=== PATIENT | female | born 1930 | race Caucasian/White ===

== ENCOUNTER → 2018-05-02 | Outpatient (CLI) | payer MEDICARE ==
[~2018-05-02] MED LIST: ACET120S; ACET325 PO; AMLO5; ASPI325; ASPI325EC; ASPI81EC PO; ATEN25; ATOR10; AZIT250 PO; BENZ100A PO; CALCIUM + D SO1 EACH; CLON.5 PO; CODGUAEL PO; FERROUS GLUCONATE; HYDACE5 PO; HYDCHL12.5 PO; LEVSOD88 PO; LISI20; LOVA20 PO; Naprosyn375 MG PO; Norco 10-325 T1 EACH PO; OMEP20ER PO; PREG100 PO; RALO60; Zithromax250 MG PO; Zofran Odt4 MG SL
== END | disposition home or self-care (01) ==
LOC: PLD 14:32 → LAB SHORT 14:32
DX: C44.42 Squamous cell carcinoma of skin of scalp and neck (principal)
CPT/HCPCS: 88305

== ENCOUNTER → 2018-06-12 | Outpatient (CLI) | payer MEDICARE ==
[~2018-06-12] MED LIST changes: +LEVSOD75 PO; +METO25ER PO
== END ==
LOC: LAB SHORT 17:55 → LAB EV 17:55
DX: R35.0 Frequency of micturition (principal)
CPT/HCPCS: 87086